=== PATIENT | male | born 1980 | race Caucasian/White ===

== ENCOUNTER 2022-05-16 19:22 | Emergency (ER) | payer BC, SELFPAY ==
[2022-05-16 19:29] VITALS: BP 147/87; PULSE 108; RESP 18; TEMP 36.7; O2SAT 99; BMI 33.5
--- NOTE | 2022-05-16 20:39 | ED.NURSE ---
Bacitracin applied to wound on pt L thumb. Wound bandaged with telfa and gauze roll.
[2022-05-16 20:40] VITALS: BP 135/78; PULSE 95; RESP 18; TEMP 36.8; O2SAT 99
[2022-05-16 20:44] VITALS: BP 135/78; PULSE 95; RESP 18; TEMP 36.8
[2022-05-16] MEDS: lidocaine HCL 2 % MULTIDOSE 20 ML VIAL INJECTION (20:45)
--- NOTE | 2022-05-16 21:42 | ED.WOUNDLAC ---
HPI - Wound/Laceration General Chief Complaint: Laceration/Wound Stated Complaint: Chainsawed left thumb Time Seen by Provider: 05/16/22 19:34 History of Present Illness HPI narrative: 41-year-old man presenting to the emergency department after cutting his left thumb with his electric chain saw it while carving some wood; apparently a hobby. He is not complaining of significant pain. He has controlled bleeding. Has not had any immobility due to this injury and that he can flex and extend the thumb. He did not see any thing that made him think that he had cut the bone. Not feeling lightheaded. No nausea reported. He does not think much repair is indicated just that he might need some antibiotics. Able to confirm current tetanus status. Related Data Home Medications Medication Instructions Recorded Confirmed dextroamphetamine-amphetamine 20 20 mg PO TID 05/16/22 05/16/22 mg tablet (Adderall) escitalopram oxalate 20 mg tablet 10 mg PO DAILY 05/16/22 05/16/22 (Lexapro) losartan 100 mg tablet (Cozaar) 100 mg PO HS 05/16/22 05/16/22 metoprolol succinate 100 mg 200 mg PO HS 05/16/22 05/16/22 capsule sprinkle, ext. release 24 hr (Kapspargo Sprinkle) Allergies Allergy/AdvReac Type Severity Reaction Status Date / Time No Known Drug Allergies Allergy Verified 05/16/22 19:35 Review of Systems Status of ROS: Reports: 6 or more systems reviewed and unremarkable except as noted in History and below [facility] Medical History ADHD Essential hypertension JOSE (generalized anxiety disorder) Surgical History No significant past surgical history Social History Smoking Status: Never smoker Do you use any of these nicotine containing products: None Second hand tobacco smoke exposure: No How often do you have a drink containing alcohol: never How often do you have six or more drinks on one occasion: Never AUDIT-C Alcohol total score: 0 Non-prescribed substance use: denies use Exam Narrative: Exam Narrative: Pleasant. Calm. Has a gauze placed on his left thumb. Breathing easily. Heart rate a little bit elevated, regular. Good pulses peripherally. Examination of the thumb with an irregular full dermal gapping laceration that goes from the radial side interphalangeal joint on the dorsal surface extending into and bisecting the nail completely with loss of some of this nail. The nailbed is disrupted. There is a pulsatile bleed at the proximal aspect of the nail fold. Laceration total length an inch and a half. Const: Vital Signs, click to edit/add: Vital Signs - 24 hr 05/16/22 19:29 05/16/22 20:40 05/16/22 20:44 Temperature 98.0 F 98.2 F 98.2 F Pulse Rate [Right Pulse Oximeter] 108 H 95 95 Respiratory Rate 18 18 18 Blood Pressure [Ri ght Upper Arm] 147/87 H 135/78 135/78 Pulse Oximetry 99 99 Oxygen Delivery Me thod Room Air Room Air Documenting provider has reviewed patient's vital signs: yes Course Vital Signs Vital signs: Initial Vital Signs Temperature 98.0 F 05/16/22 19:29 Temperature Source Temporal Artery Scan 05/16/22 19:29 Pulse Rate 108 H 05/16/22 19:29 Respiratory Rate 18 05/16/22 19:29 Blood Pressure 147/87 H 05/16/22 19:29 Blood Pressure Mean 107 05/16/22 19:29 Blood Pressure Position Sitting 05/16/22 19:29 Pulse Oximetry 99 05/16/22 19:29 Oxygen Delivery Method 05/16/22 19:29 Vital Signs Temperature 98.0 F 05/16/22 19:29 Pulse Rate 108 H 05/16/22 19:29 Respiratory Rate 18 05/16/22 19:29 Blood Pressure 147/87 H 05/16/22 19:29 Pulse Oximetry 99 05/16/22 19:29 Oxygen Delivery Method 05/16/22 19:29 Temperature 98.2 F 05/16/22 20:44 Pulse Rate 95 05/16/22 20:44 Respiratory Rate 18 05/16/22 20:44 Blood Pressure 135/78 05/16/22 20:44 Pulse Oximetry 99 05/16/22 20:40 Oxygen Delivery Method 05/16/22 20:40 MDM - Wound/Laceration MDM Narrative Medical decision making narrative: After anesthetizing with lidocaine I return to cleanse this further with scrubbing with a Shur-Clens solution. Does bleed readily. I do not see any bony involvement on further explanation. He has good strength to extension flexion of the thumb. Intact sensation. Due to this small pumping bleed I place a tourniquet before proceeding. Bleeding controlled for field visualization. Repaired with 5-0 Ethilon. I placed suture through the nail to better approximate the nailbed. While tugging this through, I felt Mr. Gonzales clear shift and he clearly had passed out. Was able to control his descent to the bed and he subsequently came to fully alert. Continue to suture remainder of laceration with better approximation proximally. Laceration closer to the nail and over the nail itself and nail bed will need to heal more by secondary intention. Removing the tourniquet continue to ooze. Antibiotic ointment Band-Aid and light Kain pressure dressing was applied Discharge Plan Discharge Clinical Impression: Laceration of finger, Laceration of finger nail bed, Syncope, vasovagal Patient Disposition: Home, Self-Care Condition: Improved Additional Instructions: sutures out in 12 days. antibiotic ointment for 5-6 days and then to a dry dressing/band-aid. ok to get wet but try not to soak while sutures are in. Watch for spreading redness after 2 days accompanied by heat, swelling, marked increase in pain and purulent drainage. Might want to keep covered with band-aid for protection and can trim nail as nail begins to be pushed off to keep nail from catching on 'things'. Leave current dressing on until Saturday. If you bleed through this current dressing re-dress it. If you bleed through that dressing also, return to the emergency department. Prescriptions: No Action Kapspargo Sprinkle 100 mg capsule,sprinkle,ER 24hr 200 mg PO HS losartan [Cozaar] 100 mg tablet 100 mg PO HS escitalopram oxalate [Lexapro] 20 mg tablet 10 mg PO DAILY dextroamphetamine-amphetamine [Adderall] 20 mg tablet 20 mg PO TID Rx Instructions: administer doses at least 4-6 hours apart Follow Up/Referrals: Provider,Not a Local [Primary Care Provider] - Stand Alone Forms: [facility] Info Instructions
== END 2022-05-16 20:44 | disposition home or self-care (01) ==
PROVIDERS: Emergency Provider Family Medicine
DX: S61.112A Laceration without foreign body of left thumb with damage to nail, initial encounter (principal); W29.3XXA Contact with powered garden and outdoor hand tools and machinery, initial encounter
CPT/HCPCS: 12001; 99283; 99284